=== PATIENT | female | born 1990 ===

== ENCOUNTER 2020-02-03 00:37 | Observation (INO) | payer OTHER ==
[~2020-02-03] VITALS: Ht 160 cm; Wt 106.0 kg
[2020-02-03] MEDS ORDERED: METF500C PO (01:03)
[2020-02-03 01:57] LABS: BASOPHILS ABSOLUTE AUTO 0.05 K/mm3 (0.00-0.23); BASOPHILS PERCENT AUTO 0 % (0-2); EOSINOPHILS ABSOLUTE AUTO 0.02 K/mm3 (0.00-0.68); EOSINOPHILS PERCENT AUTO 0 % (0-6); Hematocrit 37.3 % (33.0-51.0); Hemoglobin 12.6 g/dL (11.5-16.0); IMMATURE GRAN ABSOLUTE AUTO 0.04 K/mm3 (0.00-0.10); IMMATURE GRAN PERCENT AUTO 0 % (0-1); LYMPHOCYTES PERCENT AUTO 9 % (21-46); MONOCYTES ABSOLUTE AUTO 0.37 K/mm3 (0.16-1.47); MONOCYTES PERCENT AUTO 3 % (4-13); Mean Corpuscular HGB 29.8 pg (26.0-34.0); Mean Corpuscular HGB Conc 33.8 g/dL (31.5-36.5); Mean Corpuscular Volume 88 fL (80-100); NEUTROPHILS ABSOLUTE AUTO 11.21 K/mm3 (1.96-9.15); NEUTROPHILS PERCENT AUTO 87 % (41-73); Platelet Count 340 K/mm3 (150-400); RDW Coefficient Variation 12.3 % (11.7-14.2); RDW Standard Deviation 39.8 fL (35.1-46.3); Red Blood Cell Count 4.23 M/mm3 (3.80-5.20); White Blood Cell Count 12.89 K/mm3 (4.00-11.30)
[2020-02-03 02:14] LABS: Alanine Aminotransfer (ALT/SGP 26 U/L (12-78); Albumin, Blood 3.7 g/dL (3.4-5.0); Albumin/Globulin Ratio 0.9 (0.8-1.8); Alk Phos 49 U/L (50-136); Anion Gap 10 mmol/L (6-16); Aspartate Aminotrans (AST/SGOT 15 U/L (12-37); Bilirubin, Total 0.4 mg/dL (0.1-1.0); Blood Urea Nitrogen 9 mg/dL (8-24); Bun/Creatinine Ratio 16.6 (12.0-20.0); CO2, Blood 21 mmol/L (21-32); Chloride, Blood 109 mmol/L (98-108); Creatinine, Blood 0.54 mg/dL (0.40-1.00); Glomerular Filtration Rate >60 (60-); Glucose, Blood 119 mg/dL (70-99); Potassium, Blood 3.7 mmol/L (3.5-5.5); Sodium, Blood 140 mmol/L (136-145); Total Protein, Blood 7.7 g/dL (6.4-8.2)
--- NOTE | 2020-02-03 03:24 | NUR ---
PT ARRIVED TO UNIT VIA GURNEY. TRANSFERED TO BED WITH SBY ASSIST. PT AMBULATED TO RESTROOM IND. ORIENTED TO UNIT CALL LIGHT IN REACH. FAMILY AT BEDSIDE PREPARING TO LEAVE FOR THE NIGHT. PT REPORTS PAIN STARTING TO ELEVATE, WILL MEDICATE PER EMAR AND MONITOR FOR CHANGES IN PAIN.
--- NOTE | 2020-02-03 04:16 | NUR ---
SHIFT SUMMARY PT [id number], VSS. PT NAUSEOUS AND MEDICATED PER EMAR. PT IND/SBY IN ROOM, CONT OF BLADDER. MEDICATED FOR PAIN PER EMAR. SPOKE TO DR. QUINTERO ABOUT PTS STATED ALLERGY TO AMOXICILLIN AND PENICILLINS. NEW ORDERS RECEIVED FOR LEVAQUIN 500MG TO BE GIVEN. PT NPO SINCE ARRIVAL TO UNIT PER ORDERS.
--- NOTE | 2020-02-03 11:07 | NUR ---
02/03/20 1107 Juan Manuel Ramirez PATIENT ON SCHEDULED ANTIBIOTICS
--- NOTE | 2020-02-03 12:58 | NUR ---
PATIENT RECOVERY: PATIENT HAD SOME RESPIRATORY DISTRESS WHILE IN THE OR. SHE IS CURRENTLY IN HER ROOM AT 100% OXYGEN ON ROOM AIR. LISTENED TO HER LUNGS WHICH WERE CLEAR IN ALL QUADRANTS. BEFORE SURGERY, PATIENT STATED SHE COULDN'T "TAKE A FULL BREATH IN" BUT SINCE SURGERY SHE DENIES THIS FEELING. PATIENT WILL BE CONTINUED TO BE MONITORED.
--- NOTE | 2020-02-03 15:44 | NUR ---
SHIFT ASSESSMENT SHIFT ASSESSMENT BY KINSEY VIGIL STUDENT NURSE, WAS REVIEWED. THIS RN AGREES WITH DOCUMENTATION. WILL CONTINUE TO MONITOR.
--- NOTE | 2020-02-03 17:50 | NUR ---
SHIFT SUMMARY: PATIENT AT THE BEGINNING OF SHIFT WAS DROWSY FROM NOC NURSE GIVING PAIN MEDICATION. MONITORED THE PATIENTS O2 SATS SINCE SHE KEPT STATING THAT SHE "COULDN'T TAKE A FULL BREATH IN" UNTIL SHE LEFT FOR SURGERY. PATIENT HAD SOME RESPIRATORY DISTRESS DURING SURGERY. WHEN SHE CAME BACK TO HER ROOM MONITORING HER VITALS, ESPECIALLY HER O2 SATS. PATIENT HAS SINCE BEEN ALERT AND ORIENTED X4. SHE IS ABLE TO AMBULATE TO THE BATHROOM WITH ONLY 4/10 PAIN. WHEN PATIENT IS LAYING DOWN SHE DOESN'T COMPLAIN OF PAIN. PATIENT WAS GIVEN PAIN MEDICATION REQUESTED AFTER ABULATING TO THE BATHROOM THE FIRST TIME AFTER SURGERY. PATIENT HAS SINCE BEEN SLEEPING. SHE HAS BEEN EATING ADEQUATELY POST SURGERY WHEN SHE IS AWAKE. SHE HAS NOT BEEN NAUSEATED OR VOMITING. PATIENT UNDERSTANDS TO USE THE CALL LIGHT WHEN NEEDING PAIN MEDICATIONS OR WHEN TO USE THE BATHROOM. WILL CONTINUE TO MONITOR PATIENT.
--- NOTE | 2020-02-03 18:57 | NUR ---
SHIFT SUMMARY PT HAD A LAP JIA WITH DR. QUINTERO TODAY. SINCE RETURNING FROM [facility] PT HAS BEEN ALERT AND ORIENTED. SHE HAS BEEN ON ROOM AIR AND LUNG SOUNDS ARE CLEAR. PT HAS LAP SITES X4. PT IS TOLERATING PO. SHE HAS BEEN ABLE TO AMBULATE INDEPEDENTLY. PAIN MANAGED WITH PERCOCET. VSS. WILL MONITOR UNTIL REPORT TO ONCOMING RN.
--- NOTE | 2020-02-04 04:15 | NUR ---
SHIFT SUMMARY POD 1 LAP JIA AAOX4, VSS. PT C/O MINIMAL PAIN, MEDICATED PER EMAR X1. PT REPORTS PASSING GAS. PT IND IN ROOM, VOIDING. TOLERATING PO. PLAN TO DISCHARGE HOME TODAY.
--- NOTE | 2020-02-04 07:40 | NUR ---
IV REMOVAL: PATIENT HAD A IV PLACED ON HER RIGHT SHOULDER FOR SURGERY YESTERDAY. THE IV WAS BOTHERING THE PATIENT, SO IT WAS REMOVED THIS AM. THE IV WAS INTACT UPON REMOVAL AND WAS WNL. ARIANA IS AROUND WHERE THE IV WAS CURRENTLY. WILL CONTINUE TO MONITOR THE PATIENT.
[2020-02-04] MEDS ORDERED: OXYC5 PO (12:01)
--- NOTE | 2020-02-04 13:00 | NUR ---
DISCHARGE NOTE: PATIENT HAD STABLE VITALS THROUGHOUT THE SHIFT. SHE WAS ALERT AND OREINTED X4. PAIN WAS MANAGED EVIDENCED BY HER BEING ABLE TO ABMBULATE WELL WITHIN THE ROOM WITHOUT COMPLICATIONS. SHE WAS ALSO ABLE TO VOID. PATIENT UNDERSTOOD THE DISCHARGE INSTRUCTIONS BY VERBALIZING AND ASKING QUESTIONS WHEN NEEDING CLEARIFICATIONS. THE DISCHARGE INSTRUCTIONS WERE SENT HOME WITH THE PATIENT. SHE WAS DISCHARGED OUT OF THE UNIT WITH HER FATHER. THE PATIENT VERBALIZED THAT SHE WOULD NEED TO GO TO THE DOCTORS OFFICE IN TWO WEEKS FOR A FOLLOW UP.
--- NOTE | 2020-02-04 16:24 | NUR ---
INSURANCE VERIFIER DOCUMENTATION WAS REVIEWED AND THIS RN AGREES WITH DOCUMENTATION BY KINSEY VIGIL STUDENT NURSE.
== END 2020-02-04 13:20 | disposition home or self-care (01) ==
LOC: ER 00:37 → EDBD 00:38 → SURS 00:38 → ER 03:12 → SURS 03:34
PROVIDERS: Emergency Medicine; ADMIT Surgery
PROC: BF03YZZ Plain Radiography of Gallbladder and Bile Ducts using Other Contrast (ICD-10-PCS; principal; 2020-02-03 10:00)
PROC: 0FT44ZZ Resection of Gallbladder, Percutaneous Endoscopic Approach (ICD-10-PCS; principal; 2020-02-03 10:00)
DX: K80.00 Calculus of gallbladder with acute cholecystitis without obstruction (principal); E78.5 Hyperlipidemia, unspecified; Z88.0 Allergy status to penicillin; Z79.899 Other long term (current) drug therapy
CPT/HCPCS: 76705; 80053; 83690; 85025; 88304; 96361; 96365; 96374; 96375; 96376; 99285-25; A9270-GY; G0378; J0295; J1100; J1170; J1956; J2250; J2370; J2405; J2704; J2765; J3010; J7030; J7120